=== PATIENT | male | born 1945 | race Caucasian/White ===

== ENCOUNTER 2021-01-14 14:14 | Observation (INO) | payer MEDICARE, OTHER, SELFPAY ==
[2021-01-14] VITALS (20 sets, daily range): BP systolic 132–156; BP diastolic 66–88; PULSE 73–109; RESP 12–20; TEMP 36.1–36.5; O2SAT 97–99; BMI 19.2
--- NOTE | ~2021-01-14 | XR_ITS ---
EXAMINATION: XR chest 2V DATE: 01/14/2021 15:24 INDICATION: Chest pressure TECHNIQUE: PA and lateral views of the chest are obtained. COMPARISON: None available FINDINGS: There is mild elevation of the right hemidiaphragm. Patchy opacities are present in the lef t lung base.. There is no pleural effusion or pneumothorax. The cardiomediastinal silhouette is jimmy l. Calcified atherosclerosis is noted. There is mild thoracic spondylosis. IMPRESSION: 1. Airspace opacity of the left lung base, consistent with atelectasis versus pneumonia. Reviewed, dictated and finalized at location A. IMPRESSION: 1. Airspace opacity of the left lung base, consistent with atelectasis versus p neumonia.
--- NOTE | 2021-01-14 14:26 | ECG_ITS ---
Measurements Intervals [place] Rate: 88 P: 34 SD: 170 QRS: 70 QRSD: 144 T: -18 QT: 391 QTc: 474 Interpretive Statements SINUS RHYTHM ATRIAL PREMATURE COMPLEX RIGHT BUNDLE BRANCH BLOCK ST-T WAVE ABNORMALITY IN INFERIOR LEADS- CONSIDER ISCHEMIA ABNORMAL ECG Electronically Signed On 01-14-2021 15:59:40 CDT by Chris Huang D.O.
[2021-01-14] MEDS: ASPIRIN 81 MG CHEWABLE TABLET 324 MG PO (14:41)
[2021-01-14 14:52] LABS: Basophils Percent Auto 0.4 % (0.2-1.2); Eosinophils Absolute Auto 0.1 K/mm3 (0-0.3); Eosinophils Percent Auto 1.6 % (0-4.4); Hematocrit 47.5 % (42.0-52.0); Hemoglobin 16.5 g/dL (14.0-18.0); Immature Granulocyte Absolute 0.01 K/mm3 (0.00-0.031); Immature Granulocyte Percent A 0.1 % (0-0.5); Lymphocytes Absolute Auto 1.76 K/mm3 (0.9-3.2); Lymphocytes Percent Auto 24.9 % (18.3-44.2); Mean Corpuscular HGB Conc 34.7 g/dl (32-36); Mean Platelet Volume 9.8 fl (7.4-10.4); Monocytes Absolute Auto 0.6 K/mm3 (0.1-0.6); Monocytes Percent Auto 8.6 % (2.6-8.5); Neutrophils Absolute Auto 4.6 K/mm3 (1.3-6.7); Neutrophils Percent Auto 64.4 % (45.5-73.1); Platelet Count Result 180 k/mm3 (150-375); Red Cell Distribution Width 12.9 % (11.5-14.5); White Blood Count 7.1 K/mm3 (4.5-10.0)
[2021-01-14 15:03] LABS: Anion Gap 5 mmol/L (8-16); Blood Urea Nitrogen 21 mg/dL (9-20); Calcium 9.7 mg/dL (8.4-10.2); Carbon Dioxide 30 mmol/L (22-30); Chloride 105 mmol/L (98-107); Estimated Glomerular Filt Rate > 60; Glucose 110 mg/dL (75-110); Potassium 3.7 mmol/L (3.4-5.0); Sodium 140 mmol/L (137-145)
[2021-01-14 15:06] LABS: INR 0.9; Prothrombin Time 12.5 Seconds (11.1-14.7)
--- NOTE | 2021-01-14 15:06 | PC.NURSE ---
called chem, Cecil, added on MG 2501
[2021-01-14 15:07] LABS: Partial Thromboplastin Time 26.1 SECONDS (22.3-36.8)
[2021-01-14 15:14] LABS: Troponin I < 0.012 ng/mL (0.000-0.034)
[2021-01-14 15:15] LABS: Magnesium 2.1 mg/dL (1.6-2.3)
--- NOTE | 2021-01-14 15:25 | ED.ARRPALP ---
HPI - Arrhythmia/Palpitations General Chief Complaint: Arrhythmia/Palpitations Stated Complaint: fast heart rate Time Seen by Provider: 01/14/21 14:34 Source: patient Mode of arrival: ambulatory Limitations: no limitations History of Present Illness HPI narrative: This is a 75 year old male who presents for evaluation of palpitations. He reports about 20 minutes prior to arrival he developed palpitations. He states help his heart beating rapidly and irregularly . He reports history of palpitations and PVCS since his 20s but it never last as long as it did today. He has bilateral axillary pain at time of palpitations but he denies sob, diaphoresis, dizziness, nausea or weakness. He just wants to get checked out. Related Data Home Medications Medication Instructions Recorded Confirmed silodosin 8 mg PO DAILY 01/14/21 Allergies Allergy/AdvReac Type Severity Reaction Status Date / Time No Known Allergies Allergy Verified 01/14/21 14:26 Review of Systems Review of Systems: All systems reviewed & are unremarkable except as noted in HPI and below Constitutional: Constitutional: Denies chills and Denies fever(s) ENT: Denies sore throat Cardiovascular: Cardiovascular: Reports chest pain, Denies rapid heart rate and Denies radiating jaw, neck or arm pain Respiratory: Respiratory: Denies cough and Denies dyspnea Gastrointestinal: Gastrointestinal: Denies abdominal pain and Denies nausea PMFSH Past Medical History Medical History (Updated 01/14/21 @ 18:50 by Naida Valles MD) Frequent PVCs Surgical History Surgical History (Updated 01/14/21 @ 15:28 by Naida Valles MD) No pertinent past surgical history Social History Social History (Updated 01/14/21 @ 15:28 by Naida Valles MD) Smoking status: Never smoker Alcohol intake: never Substance use: never Substance use type: does not use Spiritual care concerns: No Exam Const: General: no acute distress and alert Orientation/consciousness: patient oriented x3 Eyes: EOM: EOMs intact bilaterally Chest: Chest palpation & inspection: normal inspection of the chest Resp: Effort & Inspection: normal respiratory effort and no retractions Auscultation: clear to auscultation bilaterally Cardio: Rate: regular rate Rhythm: regular rhythm Heart sounds: no murmurs GI: GI Palp: Yes Soft to palpation, No Tenderness to palpation present (GI) and No Guarding due to palpation present (GI) Auscultation: normal bowel sounds Skin: General skin exam: normal color Rashes: no rashes Neuro: General: patient oriented x3, moves all extremities and CN's II-XI intact bilaterally Extrem: General: normal to inspection Psych: Mental Status: mental status grossly normal Affect: normal affect Course Reevaluation(s) Reevaluation #1: I discussed with patient that his troponin is elevated and I recommend staying in hospital for observation and repeat troponin and evaluation by cardiology. He states he feels fine he does not want to stay. Date: 01/14/21 Time: 18:47 Reevaluation #2: PAtient has now agreed to stay. Date: 01/14/21 Time: 19:11 Consultations Consultation #1: I spoke with DR. Kelsey of [facility] and he agrees he should be admitted for observation and given dose of lovenox. Wendi Joshua accepts to hospitalist service. Date: 01/14/21 Time: 19:00 Vital Signs Vital signs: Vital Signs Pulse Rate 89 01/14/21 14:19 Respiratory Rate 18 01/14/21 14:19 Blood Pressure 156/87 H 01/14/21 14:19 Pulse Oximetry 98 01/14/21 14:19 Temperature 97.5 F L 01/14/21 20:57 Pulse Rate 109 H 01/14/21 20:57 Respiratory Rate 20 01/14/21 20:57 Blood Pressure 140/66 01/14/21 20:57 Pulse Oximetry 98 01/14/21 20:57 MDM - Arrhythmia/Palpitations Lab Data Attestation: I reviewed the patient's lab results. Result diagrams: 01/14/21 14:35 01/14/21 14:35 Labs: Lab Results 05
[2021-01-14 18:39] LABS: Troponin I 0.045 ng/mL (0.000-0.034)
[2021-01-14] MEDS: ENOXAPARIN 80 MG/0.8 ML SYRINGE 65 MG SUB-Q (20:00)
--- NOTE | 2021-01-14 20:30 | PM.IMHP ---
H&P: HPI History of Present Illness Date/Time: 01/14/21 20:30 Chief Complaint: Racing heart, palpitations, and chest discomfort. Narrative: The patient is a very pleasant 75-year-old male without any significant medical history aside from PVCs and BPH who presented to the emergency department earlier today via private vehicle from home for evaluation of feelings of racing heart with palpitations and chest discomfort which began not long prior to arrival. He felt in his usual state of health today and simply while putting something away in the basement his heart began to race and he had some pressure-like discomfort in his upper chest radiating to the axillae. The symptoms were self-limiting and resolved within approximately 20 minutes but he felt it would be best to come get checked out as this has never happened before. No associated syncope, near syncope, diaphoresis, shortness of breath, nausea, or vomiting. Review of Systems Review of Systems: Narrative: Twelve systems were reviewed with pertinent positives and negatives as per HPI. No fever, chills, or sweats. He denies recent cold and flu symptoms. No exposure to those positive for COVID-19. He is fully vaccinated against the same. No known history of cardiac or pulmonary disease. He has had frequent PVCs since his 20s though he has never had racing heart with the PVCs like he did today. No nausea, vomiting, diarrhea, or dysuria. No history of venous thromboembolism. Except as documented, all other systems were reviewed and are negative. [facility] Past Medical History Medical History (Updated 01/14/21 @ 22:05 by Wendi Joshua PA-C) Benign prostatic hyperplasia Frequent PVCs Psoriasis Surgical History Surgical History (Updated 01/14/21 @ 22:00 by Wendi Joshua PA-C) History of bilateral inguinal hernia repair History of sinus surgery Family History Family History (Updated 01/14/21 @ 22:00 by Wendi Joshua PA-C) Mother Dementia Father Pancreatic mass Social History Social History (Updated 01/14/21 @ 22:02 by Wendi Joshua PA-C) Social History: The patient lives in [place] with his . They have 6 children, 3 of them are his biological children. 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 He spent 9 years thereafter working at the [employer] in [place] and is still quite involved there. Lifelong nonsmoker. No alcohol or illicit substance use. His Marianna and his son Shelton are his surrogate decision makers. Code status: Full code. Meds Home Medications and Allergies Home Medications Medication Instructions Recorded Confirmed Type silodosin 8 mg PO DAILY 01/14/21 01/14/21 History Allergies Allergy/AdvReac Type Severity Reaction Status Date / Time No Known Allergies Allergy Verified 01/14/21 14:26 Vital Signs Vital Signs - 24 hr 01/14/21 14:19 01/14/21 14:20 01/14/21 14:23 Temperature 97.0 F L Pulse Rate 89 89 89 Respiratory Rate 18 18 18 Blood Pressure 156/87 H 156/87 H Pulse Oximetry 98 98 99 01/14/21 14:30 01/14/21 14:31 01/14/21 14:45 Temperature Pulse Rate 85 83 79 Respiratory Rate 14 16 16 Blood Pressure 150/81 H 152/84 H Pulse Oximetry 98 97 98 01/14/21 14:46 01/14/21 15:06 01/14/21 15:15 Temperature Pulse Rate 79 79 74 Respiratory Rate 17 15 Blood Pressure Pulse Oximetry 98 99 01/14/21 15:26 01/14/21 15:30 01/14/21 15:31 Temperature Pulse Rate 74 73 74 Respiratory Rate 18 14 15 Blood Pressure 151/88 H 149/84 H Pulse Oximetry 99 98 98 01/14/21 15:45 01/14/21 15:46 01/14/21 16:00 Temperature Pulse Rate 77 74 80 Respiratory Rate 17 12 18 Blood Pressure 137/80 Pulse Oximetry 98 98 98 01/14/21 18:54 01/14/21 20:57 Temperature 97.5 F L Pulse Rate 80 109 H Respiratory Rate 20 20 Blood Pressure 132/68 140/66 Pulse Oximetry 99 98 Exam Narrative: Exam Narrative: General: Well-developed brijesh
--- NOTE | 2021-01-14 20:57 | ADMGEN ---
This patient, Darshan Wong Jr., was admitted to IMU Room 200-01. Patient/family oriented to hospital policies and general routines including ID bracelet, bed and alarms, visiting hours, pain management, procedures, bathroom and other care routines, personal items, smoking policy, room service/diet, and visiting hours. Information on how to activate the Rapid Response Team has been discussed. Patient/Family are encouraged to report perceived risks to care and to ask questions if they do not understand what they are told or what they should do.
[2021-01-14] MEDS: MELATONIN 5 MG TABLET PO (22:32)
[2021-01-14 23:01] LABS: Troponin I 0.073 ng/mL (0.000-0.034)
[2021-01-15] VITALS (9 sets, daily range): BP systolic 138–154; BP diastolic 78–88; PULSE 68–105; RESP 18–20; TEMP 36.1–36.8; O2SAT 97–98
[2021-01-15 04:58] LABS: Hemoglobin 15.5 g/dL (14.0-18.0); Mean Corpuscular HGB Conc 34.4 g/dl (32-36); Mean Corpuscular Hemoglobin 33.2 pg (26-34); Mean Corpuscular Volume 96.4 fl (80-100); Mean Platelet Volume 9.8 fl (7.4-10.4); Platelet Count Result 172 k/mm3 (150-375); Red Blood Count 4.67 M/mm3 (4.6-6.20); Red Cell Distribution Width 12.8 % (11.5-14.5); White Blood Count 8.3 K/mm3 (4.5-10.0)
[2021-01-15 05:13] LABS: Alanine Aminotransferase 21 U/L (4-50); Albumin Level 3.7 g/dL (3.5-5.1); Alkaline Phosphatase 55 U/L (38-126); Anion Gap 1 mmol/L (8-16); Aspartate Amino Transferase 23 U/L (17-59); Bilirubin,Total 0.4 mg/dL (0.2-1.3); Blood Urea Nitrogen 18 mg/dL (9-20); Calcium 9.1 mg/dL (8.4-10.2); Carbon Dioxide 32 mmol/L (22-30); Chloride 104 mmol/L (98-107); Cholesterol 147 mg/dL (0-200); Estimated CRCL calculation 61 ml/min; Estimated Glomerular Filt Rate > 60; Glucose 91 mg/dL (75-110); HDL Direct 61 mg/dL; Magnesium 1.9 mg/dL (1.6-2.3); Potassium 3.3 mmol/L (3.4-5.0); Sodium 137 mmol/L (137-145); Triglycerides 45 mg/dL (<150)
[2021-01-15 05:24] LABS: LDL Cholesterol Direct 64 mg/dL
--- NOTE | 2021-01-15 06:00 | ECHO_ITS ---
Patient Info Name: Darshan Wong Age: 75 years : 1945 Gender: Male Ht: 71 in Wt: 137 lbs BSA: 1.75 m2 HR: 82 bpm BP: 140 / 78 mmHg Heart Rhythm: Sinus Rhythm Technical Quality: Good Exam Date: 01/15/2021 9:03 AM Exam Location: [facility] Pulmonary Patient Status: Inpatient Admit Date: 01/14/2021 Staff Ordering Physician: Naida Valles MD Tunnel Kiln Repairer: Duane Méndez RDCS, RT Attending Provider: Jun Santiago MD Referring Physician: Hai WILL; Exam Type: CA echo doppler color flow Study Info Indications R00.2 - Palpitations Complete two-dimensional, color flow and Doppler transthoracic echocardiogram is performed. Strain analysis performed. Summary 1. Complete two-dimensional, color flow and Doppler transthoracic echocardiogram is performed. 2. Left ventricular chamber size, wall thickness, systolic function are normal with no regional wall motion abnormalities with an estimated ejection fraction of 60-65%. Grade 1 diastolic dysfunction is present. Global longitudinal strain in normal at -20%. 3. No pulmonary hypertension, estimated pulmonary arterial systolic pressure is 28 mmHg. 4. Mild prolapse of the posterior mitral valve leaflet with trivial mitral regurgitation. 5. Normal sinus rhythm. Left Ventricle Left ventricular chamber dimension is normal. Left ventricular systolic function is normal, estimated at 60-65%. There is no increased left ventricular wall thickness. Left ventricular septal wall motion is normal. The left ventricular diastolic function is grade I diastolic dysfunction. Global longitudinal strain is normal at 20 %. Left ventricular chamber size, wall thickness, systolic function are normal with no regional wall motion abnormalities with an estimated ejection fraction of 60-65%. Grade 1 diastolic dysfunction is present. Global longitudinal strain in normal at -20%. Right Ventricle Right ventricular chamber dimension is normal. Right ventricular systolic function is normal. Left Atria Left atrial chamber dimension is normal. Right Atria Right atrial chamber dimension is normal. Aortic Valve The aortic valve is trileaflet. There is no aortic valve sclerosis. There is no aortic valve stenosis. There is no aortic valve regurgitation. Pulmonic Valve The pulmonic valve is normal. There is no pulmonic valve stenosis. There is trace pulmonic regurgitation. Mitral Valve The mitral valve has posterior prolapse. There is no mitral valve stenosis. There is trace mitral valve regurgitation. Tricuspid Valve The tricuspid valve leaflets are normal. There is no significant tricuspid valve stenosis. There is trace tricuspid valve regurgitation. No pulmonary hypertension, estimated pulmonary arterial systolic pressure is 28 mmHg. Pericardium/Pleural The pericardium appears normal. There is no pericardial effusion. Inferior Vena Cava Normal inferior vena cava with >50% collapse upon inspiration consistent with Empty right atrial pressure, 5 mmHg. Aorta The aortic root size at the sinus of Valsalva is normal. The prox ascending aorta size is normal. Left Ventricular Outflow Tract Name Value Normal LVOT 2D LVOT Diameter 2.
[2021-01-15] MEDS: ASPIRIN 81 MG CHEWABLE TABLET PO (08:35)
--- NOTE | 2021-01-15 09:21 | PM.IMPN ---
Progress Note: A&P Assessment and Plan (1) Palpitations: Code(s): R00.2 - Palpitations Status: Acute (2) Chest pressure: Code(s): R07.89 - Other chest pain Status: Acute (3) Elevated troponin: Code(s): R77.8 - Other specified abnormalities of plasma proteins Status: Acute (4) Benign prostatic hyperplasia: Code(s): N40.0 - Benign prostatic hyperplasia without lower urinary tract symptoms Status: Acute (5) Elevated blood pressure reading: Code(s): R03.0 - Elevated blood-pressure reading, without diagnosis of hypertension Status: Acute Additional Plan 01/14/21 The patient presents today for evaluation of chest pressure and palpitations as per HPI. Initial troponin in the emergency department was less than 0.12 however his 3 hour troponin was a bit elevated. EKG showed occasional ectopy with some ST wave abnormalities in the inferior leads concerning for possible ischemia. In light of this he is being admitted to the IMU and will be monitored on telemetry. He was given aspirin 325 milligrams in the emergency department and has been started on Lovenox 1 milligram/kilogram b.i.d. He will be NPO after midnight for possible cardiac catheterization in the morning, pending cardiology consultation. Dr. Kelsey has been consulted and his input is appreciated. The patient's blood pressures have been running in the 140s to 150 systolic but he is noticeably anxious thus will continue to monitor closely for now. Should his troponin continue to elevate it may be prudent to begin metoprolol which would help with his premature complexes as well. His home medications will be reviewed and resumed as appropriate. Patient reports that he is feeling fine. No chest pressure or pain or tightness since admission denies any palpitations since admission. Patient has history of palpitations and no PVCs but they have not been persistent. This episode lasted approximately 15 minutes. We discussed that he could have an elevated troponin due from demand ischemia associated with these palpitations however we will defer to Cardiology to further determine etiology and appropriate workup. 01/15/21 troponin w elevation .045-> .073, cardiology following, likely associated with episode of tachycardia. Continue current care with continuous telemetry monitoring. Anticipate discharge home when cleared by lunchroom aide. Subjective Date/time seen: 11:02 01/15/21 Patient doing okay denies any chest pain shortness of breath dizziness or any other complaint other than intermittent palpitations with chest tightness while occurring. Review of Systems Review of Systems: All systems reviewed & are unremarkable except as noted in HPI and below Exam Narrative: Exam Narrative: GEN: NAD, AAOx2, cooperative HEENT: NCAT, MMM, EOMI Neck: no JVD Heart: S1S2 RRR Lungs: CTA B/l Abd: soft, NT, ND, bowel sounds normoactive Ext: moves all, no cyanosis, no clubbing, no edema Psych: mood and affect congruent Objective Data Vital Signs Vital Signs: Vital Signs - 24 hr 01/14/21 14:19 01/14/21 14:20 01/14/21 14:23 Temperature 97.0 F L Pulse Rate 89 89 89 Respiratory Rate 18 18 18 Blood Pressure 156/87 H 156/87 H Pulse Oximetry 98 98 99 01/14/21 14:30 01/14/21 14:31 01/14/21 14:45 Temperature Pulse Rate 85 83 79 Respiratory Rate 14 16 16 Blood Pressure 150/81 H 152/84 H Pulse Oximetry 98 97 98 01/14/21 14:46 01/14/21 15:06 01/14/21 15:15 Temperature Pulse Rate 79 79 74 Respiratory Rate 17 15 Blood Pressure Pulse Oximetry 98 99 01/14/21 15:26 01/14/21 15:30 01/14/21 15:31 Temperature Pulse Rate 74 73 74 Respiratory Rate 18 14 15 Blood Pressure 151/88 H 149/84 H Pulse Oximetry 99 98 98 01/14/21 15:45 01/14/21 15:46 01/14/21 16:00 Temperature Pulse Rate 77 74 80 Respiratory Rate 17 12 18 Blood Pressure 137/80 Pulse Oximetry 98 98 98 01/14/21 18:54 01/14/21 20:57
[2021-01-15] MEDS: POTASSIUM CHLORIDE 10 MEQ TABLET 30 MEQ PO (10:45)
--- NOTE | 2021-01-15 11:44 | PM.CNCAR ---
Assessment and Plan Assessment and plan (1) Tachycardia: Code(s): R00.0 - Tachycardia, unspecified Status: Acute Assessment and Plan: Stuart Wong appears to be having very infrequent sustained tachyarrhythmia. Since he had an episode a few decades ago when young this may be a PSVT but of course we need to look for paroxysmal atrial fibrillation. He does have PVCs and he could have and right ventricular outflow tract tachycardia or other unusual tachycardias. On the good side, he does not have any symptoms of dizziness or syncope but he did develop some chest tightness with this episode. We should evaluate for underlying CAD but I do not think ischemia was the cause of the tachycardia. (2) Elevated troponin: Code(s): R77.8 - Other specified abnormalities of plasma proteins Status: Acute Assessment and Plan: Elevated troponins noted, probably as a result of the tachycardia; I do not think this was an ACS event. Will need to evaluate for any underlying CAD. He does not have any angina and has good exertional tolerance. He does appear to have some lateral ST depression and I repeated an EKG, which showed some improvement but still residual changes, so this may be chronic and insignificant. Echo showed good LV function w/ no wall motion abnormalities. Discussed options with patient: Outpatient monitoring, empiric beta-anibal therapy, implantable loop recorder etc. (3) Chest pressure: Code(s): R07.89 - Other chest pain Status: Acute Assessment and Plan: Chest pressure as a result of the tachyarrhythmia, no evidence of ACS. (4) Elevated blood pressure reading: Code(s): R03.0 - Elevated blood-pressure reading, without diagnosis of hypertension Status: Acute Assessment and Plan: Blood pressure apparently runs high in the hospital but normal at home (5) Mitral valve prolapse: Code(s): I34.1 - Nonrheumatic mitral (valve) prolapse Status: Acute Assessment and Plan: Mild MVP with trivial MR, not likely to cause problems but occasionally associated with atrial fibrillation and occasionally with chordal rupture and abrupt significant MR. Periodic monitoring with echo particularly if there is a change in symptoms or development of murmur. Additional Plan Okay for discharge Patient declined medical therapy (diltiazem or metoprolol for example) for his arrhythmia, reasonable in view of it's infrequency and self-termination, but will discuss later. My office will set up outpatient long-term monitoring, a stress test, and office visit. Reviewed the Valsalva maneuver. Patient may benefit from an implantable loop recorder if nothing shows up on the 30 day monitor Would add aspirin 81 mg daily. History of Present Illness History of Present Illness Consult date/time: 01/15/21 11:44 Requesting physician: Wendi Joshua PA-C Consult reason: Other Reason For Visit: elevated troponin, palpitations Narrative: (retired) Darshan Wong is a 75-year-old white male whom we were asked to see at the request of the hospitalist for our advice and opinion regarding his palpitations, chest discomfort and elevated troponins, in consultation. Colonel Wong ( Just call me Stuart ) has no history of heart problems. However he has had a couple episodes of tachycardia in his life time, once around 1979 and once about 5 years ago lasting 10 or so minutes. He has not had much evaluation of these. Yesterday, while doing minor activity he suddenly found his heart was racing, and it felt very steady but fast. He had no nausea, sweating or shor
[2021-01-15] MEDS: ENOXAPARIN 80 MG/0.8 ML SYRINGE 65 MG SUB-Q (13:04)
--- NOTE | 2021-01-15 13:26 | ECG_ITS ---
Measurements Intervals [place] Rate: 84 P: 32 [place]: 165 QRS: 66 QRSD: 142 T: 37 QT: 384 QTc: 457 Interpretive Statements SINUS RHYTHM ATRIAL PREMATURE COMPLEXES RIGHT BUNDLE BRANCH BLOCK ABNORMAL ECG Electronically Signed On 01-15-2021 13:40:37 CDT by Chris Huang D.O.
--- NOTE | 2021-01-15 16:58 | PM.DS ---
DS: Admitting Diagnosis Admitting Diagnosis Admitting Diagnosis: (1) Palpitations: (2) Chest pressure: (3) Elevated troponin: (4) Benign prostatic hyperplasia: (5) Elevated blood pressure reading: DS: Discharge Diagnosis Discharge Diagnosis (1) Palpitations: Code(s): R00.2 - Palpitations Status: Acute (2) Chest pressure: Code(s): R07.89 - Other chest pain Status: Acute (3) Elevated troponin: Code(s): R77.8 - Other specified abnormalities of plasma proteins Status: Acute (4) Benign prostatic hyperplasia: Code(s): N40.0 - Benign prostatic hyperplasia without lower urinary tract symptoms Status: Acute (5) Elevated blood pressure reading: Code(s): R03.0 - Elevated blood-pressure reading, without diagnosis of hypertension Status: Acute DS: Summary Hospital Course Reason for hospitalization: chest tightness, palpations Hospital Course: Patient admitted with chest tightness associated with palpitations for approximately 15 minutes. that resolved prior to admission. Patient did have an elevated troponin likely secondary to this event. He was seen by cardiology and cleared for discharge, ACS ruled out, recommendation is for assets 81 mg p.o. q.day and ongoing outpatient workup. Status at Discharge Functional status at discharge: independent ambulation Overall status at discharge: patient is back to baseline Time Spent with Patient Time attestation: Total time spent providing and/or coordinating discharge services: Time spent: Less than 30 minutes Exam Narrative: Exam Narrative: GEN: NAD, AAOx2, cooperative HEENT: NCAT, MMM, EOMI Neck: no JVD Heart: S1S2 RRR Lungs: CTA B/l Abd: soft, NT, ND, bowel sounds normoactive Ext: moves all, no cyanosis, no clubbing, no edema Psych: mood and affect congruent DS: Data Data Completed and Pending Labs on day of discharge: Labs from last 24 hours 01/15/21 01/15/21 01/15/21 04:25 04:25 04:25 WBC 8.3 RBC 4.67 Hgb 15.5 Hct 45.0 MCV 96.4 MCH 33.2 MCHC 34.4 RDW 12.8 Plt Count 172 MPV 9.8 Sodium 137 Potassium 3.3 L Chloride 104 Carbon Dioxide 32 H Anion Gap 1 L BUN 18 Creatinine 0.80 Estim Creat Clear Calc 61 Estimated GFR > 60 Glucose 91 Calcium 9.1 Magnesium 1.9 Total Bilirubin 0.4 AST 23 ALT 21 Alkaline Phosphatase 55 Troponin I Total Protein 6.0 L Albumin 3.7 Triglycerides 45 Cholesterol 147 LDL Cholesterol Direct 64 HDL Direct 61 TSH (Reflex) 1.450 01/14/21 01/14/21 22:30 17:27 WBC RBC Hgb Hct MCV MCH MCHC RDW Plt Count MPV Sodium Potassium Chloride Carbon Dioxide Anion Gap BUN Creatinine Estim Creat Clear Calc Estimated GFR Glucose Calcium Magnesium Total Bilirubin AST ALT Alkaline Phosphatase Troponin I 0.073 H* D 0.045 H* D Total Protein Albumin Triglycerides Cholesterol LDL Cholesterol Direct HDL Direct TSH (Reflex) Discharge Plan Discharge Attending physician on discharge: Candace Coker Consulting providers: Marko Kelsey Discharging Clinician: Candace Coker Anticipated Discharge Date/Time: 01/15/21 16:55 Patient Disposition: Home, Self-Care Activity: as tolerated Diet: heart healthy Discharge Instructions: [facility] should be calling you in the next couple of days to schedule a long-term patch monitor, a stress test, and office follow-up. Please call Dr Malloy if you have any questions or problems. [facility] Cardiology: [phone]. Address: [address] [place] [address] [address], [address], [place] [address]. Our office is on the ground floor next to the gift shop of the doctor's office building. Enter through the main entrance for COVID screening. Dr. Malloy recommends taking aspirin 81 mg daily
== END 2021-01-15 17:22 | disposition home or self-care (01) ==
LOC: ANHED 19:18 → ANHIMU 21:45
PROVIDERS: Emergency Medicine; Physician Assistant; Admitting Provider Internal Medicine; Emergency Provider General Practice; PCP Family Medicine; Visit Provider Hospitalist
DX: R00.2 Palpitations (principal); R77.8 Other specified abnormalities of plasma proteins; R07.89 Other chest pain; R00.0 Tachycardia, unspecified; R03.0 Elevated blood-pressure reading, without diagnosis of hypertension; N40.0 Benign prostatic hyperplasia without lower urinary tract symptoms
CPT/HCPCS: 36415; 71046; 80048; 80053; 80061; 83735; 84443; 84484; 85025; 85027; 85610; 85730; 93005; 93306; 96372; 99285; A9270; G0378; J1650

== ENCOUNTER → 2021-03-15 01:19 | Outpatient (CLI) | payer MEDICARE, OTHER, SELFPAY ==
[2021-03-15 16:44] LABS: SARS-CoV-2 RNA PCR Negative
== END ==
PROVIDERS: PCP Family Medicine; Visit Provider Internal Medicine Cardiovascular Disease
DX: Z01.812 Encounter for preprocedural laboratory examination (principal); Z20.822 Contact with and (suspected) exposure to COVID-19
CPT/HCPCS: C9803; U0003; U0005

== ENCOUNTER → 2021-03-18 01:18 | Day surgery (SDC) | payer MEDICARE, OTHER, SELFPAY ==
[2021-03-18 11:00] VITALS: BP 145/88; PULSE 78; RESP 14; TEMP 36.3; O2SAT 100; BMI 21.2
--- NOTE | 2021-03-18 11:39 | WPDHPUPDATE1 ---
History and Physical Update Update Date/Time: 03/18/21 11:39 patient with a history of infrequent tachyarrhythmias was hospitalized recently for another episode which had resolved prior to his arrival in the emergency room. Outpatient monitoring has shown PVCs and a 4 beat run of ventricular tachycardia. He is here for implantation of a long-term implantable loop recorder for further evaluation. History and Physical has been reviewed, including an updated exam of the patient. There are NO changes in the patient's condition. Risks, benefits, and alternatives have been discussed and questions answered. Patient agrees to proceed with procedure.
--- NOTE | 2021-03-18 11:40 | P.SEDATION_ITS ---
Moderate Sedation Note-Pt Data Patient Data Diagnosis: Paroxysmal tachyarrhythmia Present Complaint: paroxysmal tachyarrhythmia Procedure to be performed/Plan: Possible conscious sedation Local and anesthesia Implantation of a implantable loop recorder Allergies Allergy/AdvReac Type Severity Reaction Status Date / Time codeine AdvReac Gastrointestinal Verified 03/18/21 11:30 Upset prednisone AdvReac Jittery Verified 03/18/21 11:30 theophylline AdvReac Chest Pain Verified 03/18/21 11:29 Home Medications Medication Instructions Recorded Confirmed Type silodosin 8 mg PO DAILY 01/14/21 01/14/21 History aspirin [Children's Aspirin] 81 mg PO DAILY@0800 #30 tablet 01/15/21 Rx Sedation/Anesthesia: No previous sedation/anesthesia problems (including family history). [facility] Past Medical History Medical History Benign prostatic hyperplasia Frequent PVCs Psoriasis Surgical History Surgical History History of bilateral inguinal hernia repair History of sinus surgery Family History Family History Mother Dementia Father Pancreatic mass Social History Social History Social History: The patient lives in [place] with his . They have 6 children, 3 of them are his biological children. 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 He spent 9 years thereafter working at the [employer] in [place] and is still quite involved there. Lifelong nonsmoker. No alcohol or illicit substance use. His Marianna and his son Shelton are his surrogate decision makers. Code status: Full code. Mod Sed Physical Exam Physical Exam Pre Procedural Exam: Normal: Appearance, Eyes, Ears, Nose, Neck, Throat, Airway, Lungs, Heart Size, Heart Rate, Heart Rhythm, Neuro Exam, Abdomen, Extremities and Skin Hours since solid foods: 12 Hours since liquid intake: 12 Mallampati Classification: class III Internal Medicine - PN: Obj Da Vital Signs Vital Signs: Vital Signs - 24 hr 03/18/21 11:00 Temperature 97.4 F L Pulse Rate 78 Respiratory Rate 14 Blood Pressure 145/88 H Pulse Oximetry 100 ASA Classification/Sedation ASA Classification/Sedation ASA Class: III Emergent: No Risks: Risks, benefits and alternatives explained and patient/family accepted plan for sedation. Patient re-evaluated immediately prior to sedation.
--- NOTE | 2021-03-18 12:01 | PM.OP ---
Procedure Note - Brief Procedure Note - Brief Date of procedure: 03/18/21 Pre-op diagnosis: tachyarrhythmia Post-op diagnosis: same Procedure performed: insertion of a Biotronik implantable loop recorder Description of procedure: uneventful implant Anesthesia: local Surgeon: Hui Malloy MD Estimated blood loss (mL): 1 Complications: No immediate complications Condition: stable Disposition: same day
--- NOTE | 2021-03-18 12:03 | W.PM.PROC2 ---
Procedure Note - Detailed Date of Procedure 03/18/21 Pre-op Diagnosis tachyarrhythmia of uncertain etiology Post-op Diagnosis same Procedure Performed implantation of a Biotronik implantable loop recorder Surgeon Hui Malloy MD Anesthesia local Indications tachyarrhythmia of uncertain etiology Description of Procedure After informed consent, the patient's left parasternal area was prepped and draped in usual fashion. He received 1% lidocaine over the 3rd-4th intercostal space and a Biotronik loop recorder (Model 859321, Serial [id number]) was inserted in the standard fashion along the left sternal border. Hemostasis is was obtained with local pressure. The incision was closed with Dermabond, and dressed with a clean large Band-Aid. He tolerated the procedure well with no complications. The device was interrogated and R-wave sensing was found to be good, 0. 55 to 0.7 mV Follow-up: The patient is given information about remote monitoring, will follow-up in our office in 1 week for an incision check Implants Biotronik loop recorder, Model [id number], Serial [id number] Estimated Blood Loss 1 Drains No Packing No Pathology none sent Complications No immediate complications Condition stable Disposition same day
--- NOTE | 2021-03-18 12:57 | SUR.OPER ---
Pt tolerated loop recorder placement well. No complaints of pain or discomfort. Discharge instructions reviewed with patient with stated understanding - including wound care, follow up appointment, advancing activity - limiting use of left arm for the next week. Pt escorted to [facility] to drive home.
== END | disposition home or self-care (01) ==
PROVIDERS: Internal Medicine Cardiovascular Disease; PCP Family Medicine; Visit Provider Internal Medicine Cardiovascular Disease
PROC: (CPT 33285; principal; 2021-03-18 11:30)
DX: R00.0 Tachycardia, unspecified (principal); I34.1 Nonrheumatic mitral (valve) prolapse; Z79.82 Long term (current) use of aspirin; L40.9 Psoriasis, unspecified
CPT/HCPCS: 33285; C1764

== ENCOUNTER 2021-12-16 13:14 | Emergency (ER) | payer MEDICARE, OTHER, SELFPAY ==
--- NOTE | ~2021-12-16 | XR_ITS ---
EXAMINATION: XR chest 2V EXAM DATE: 12/16/2021 13:32 INDICATION: Palpitations earlier today. TECHNIQUE: Frontal and lateral projections of the chest obtained and reviewed. Comparison is made to prior examination from 01/14/2021. FINDINGS: Cardiac monitoring device. The lungs are clear. There are no pleural effusions. The card iomediastinal silhouette is within normal limits. There is no pneumothorax suspected. The bones and soft tissues are unremarkable. IMPRESSION: No acute cardiopulmonary findings. Reviewed, dictated and finalized at location A.
--- NOTE | 2021-12-16 13:23 | ECG_ITS ---
Measurements Intervals [place] Rate: 104 P: 43 FL: 168 QRS: 79 QRSD: 149 T: -16 QT: 355 QTc: 468 Interpretive Statements SINUS TACHYCARDIA RIGHT BUNDLE BRANCH BLOCK [120+ ms QRS DURATION, UPRIGHT V1, 40+ ms S IN I/aVL/V4/V5/V6] COMPARED TO ECG 01/15/2021 13:36:58 SINUS TACHYCARDIA NOW PRESENT Electronically Signed On 12-16-2021 16:50:28 CDT by Hui Malloy M.D.
[2021-12-16 13:27] VITALS: BP 149/101; PULSE 103; RESP 18; TEMP 36.8; O2SAT 96
[2021-12-16 13:55] LABS: Basophils Percent Auto 0.5 % (0.2-1.2); Eosinophils Absolute Auto 0.1 K/mm3 (0-0.3); Eosinophils Percent Auto 1.8 % (0-4.4); Hematocrit 50.1 % (42.0-52.0); Hemoglobin 16.8 g/dL (14.0-18.0); Immature Granulocyte Absolute 0.01 K/mm3 (0.00-0.031); Immature Granulocyte Percent A 0.2 % (0-0.5); Lymphocytes Absolute Auto 1.23 K/mm3 (0.9-3.2); Lymphocytes Percent Auto 19.9 % (18.3-44.2); Mean Corpuscular HGB Conc 33.5 g/dl (32-36); Mean Corpuscular Hemoglobin 33.7 pg (26-34); Mean Corpuscular Volume 100.4 fl (80-100); Mean Platelet Volume 9.7 fl (7.4-10.4); Monocytes Absolute Auto 0.4 K/mm3 (0.1-0.6); Monocytes Percent Auto 6.3 % (2.6-8.5); Neutrophils Absolute Auto 4.4 K/mm3 (1.3-6.7); Neutrophils Percent Auto 71.3 % (45.5-73.1); Platelet Count Result 162 k/mm3 (150-375); Red Blood Count 4.99 M/mm3 (4.6-6.20); Red Cell Distribution Width 12.8 % (11.5-14.5); White Blood Count 6.2 K/mm3 (4.5-10.0)
[2021-12-16 14:06] LABS: Alanine Aminotransferase 26 U/L (4-50); Albumin Level 4.3 g/dL (3.5-5.1); Alkaline Phosphatase 62 U/L (38-126); Anion Gap 8 mmol/L (8-16); Aspartate Amino Transferase 27 U/L (17-59); Bilirubin,Total 0.6 mg/dL (0.2-1.3); Blood Urea Nitrogen 23 mg/dL (9-20); Calcium 9.2 mg/dL (8.4-10.2); Carbon Dioxide 29 mmol/L (22-30); Chloride 102 mmol/L (98-107); Estimated CRCL calculation 52 ml/min; Estimated Glomerular Filt Rate > 60; Glucose 128 mg/dL (65-110); Lipase 115 U/L (23-300); Potassium 3.4 mmol/L (3.4-5.0); Sodium 139 mmol/L (137-145)
[2021-12-16 14:07] LABS: Prothrombin Time 12.4 Seconds (11.1-14.7)
[2021-12-16 14:08] LABS: Partial Thromboplastin Time 26.1 SECONDS (22.3-36.8)
[2021-12-16 14:19] LABS: Troponin I < 0.012 ng/mL (0.000-0.034)
--- NOTE | 2021-12-16 16:06 | PC.NURSE ---
Care assumed of pt at this time, Pt denies any current s/s
--- NOTE | 2021-12-16 16:26 | ED.ARRPALP ---
HPI - Arrhythmia/Palpitations General Chief Complaint: Arrhythmia/Palpitations Stated Complaint: arrhythmia Time Seen by Provider: 12/16/21 15:52 Source: patient Mode of arrival: ambulatory Limitations: no limitations History of Present Illness HPI narrative: 76-year-old male presents emergency room secondary to a fast heart rate. States he was at home earlier today when he had episode his heart was racing. He had no syncope or loss of consciousness. Denied any shortness of breath. Lasted for approximately 10 to 15 minutes and spontaneously went back to his normal rhythm. Similar episodes in the past and had a [employer] event monitor inserted in January 2021. This is the first time since then that he has had any type of episode so he came to the emergency room. The monitor set up so that it transmit all of the readings from the day overnight to a device this is beside his bed therefore we do not have access to these readings at this time. Related Data Home Medications Medication Instructions Recorded Confirmed silodosin 8 mg PO DAILY 01/14/21 01/14/21 Allergies Allergy/AdvReac Type Severity Reaction Status Date / Time codeine AdvReac Gastrointestinal Verified 03/18/21 11:30 Upset prednisone AdvReac Jittery Verified 03/18/21 11:30 theophylline AdvReac Chest Pain Verified 03/18/21 11:29 Review of Systems Review of Systems: CONSTITUTIONAL: Denies fever, chills, or sweats. EYES: Denies visual changes, redness, or discharge. ENT: Denies rhinorrhea, congestion, sore throat, or otalgia. CARDIOVASCULAR: Episode of tachycardia today. Denies any shortness of breath or chest pain. RESPIRATORY: Denies cough or dyspnea. GASTROINTESTINAL: Denies abdominal pain, nausea, vomiting, or diarrhea. GENITOURINARY: Denies dysuria or hematuria. SKIN: Denies rash or itching. MUSCULOSKELETAL: Denies back pain, joint pain, or myalgia. NEUROLOGIC: Denies headache, numbness, or weakness. PSYCHIATRIC: Denies anxiety or depression. [facility] Past Medical History Medical History Benign prostatic hyperplasia Frequent PVCs Psoriasis Surgical History Surgical History History of bilateral inguinal hernia repair History of sinus surgery Family History Family History Mother Dementia Father Pancreatic mass Social History Social History Social History: The patient lives in [place] with his . They have 6 children, 3 of them are his biological children. 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 Lifelong nonsmoker. No alcohol or illicit substance use. His Marianna and his son Shelton are his surrogate decision makers. Code status: Full code. Exam Narrative: APPEARANCE: Well appearing, no pain or distress, well-nourished. Head normocephalic and atraumatic. EYES: PERRLA/EOMI, conjunctivae very clear. NOSE: Normal with no drainage EARS:TMS clear Ricarda Shaw, with good light reflex. THROAT: Pharynx clear, no exudate. NECK: Supple. No adenopathy, no masses. RESPIRATORY: Airway patent, respirations nonlabored. Clear to auscultation bilaterally, no rales, rhonchi, wheezing. CARDIOVASCULAR: Regular rate and rhythm without murmurs, rubs, or gallops. ABDOMINAL: Soft, nontender, nondistended, no hepatosplenomegaly Musculoskeletal: Moves all extremities. Strength/ROM intact, No edema, No calf tenderness. NEURO: Alert. Cranial nerves II through XII intact. Normal gait. Good coordination. Nonfocal examination. SKIN:: Warm, dry. Normal Color PSYCHIATRIC: Normal affect/mood, normal interaction Course Vital Signs Vital signs: Vital Signs Temperature 98.3 F 12/16/21 13:27 Pulse Rate 103 H 04
[2021-12-16 16:52] LABS: Troponin I 0.017 ng/mL (0.000-0.034)
[2021-12-16 16:56] VITALS: BP 131/81; PULSE 88; RESP 18; O2SAT 98
== END 2021-12-16 16:56 | disposition home or self-care (01) ==
LOC: ANHED 16:47
PROVIDERS: Emergency Provider Emergency Medicine; PCP Family Medicine
DX: R00.0 Tachycardia, unspecified (principal); Z79.899 Other long term (current) drug therapy; Z88.5 Allergy status to narcotic agent; Z88.8 Allergy status to other drugs, medicaments and biological substances
CPT/HCPCS: 36415; 71046; 80053; 83690; 84484; 85025; 85610; 85730; 93005; 99284

== ENCOUNTER 2023-07-06 11:04 | Outpatient (CLI) | payer MEDICARE, OTHER, SELFPAY ==
--- NOTE | ~2023-07-06 | CT_ITS ---
EXAMINATION: CT soft tissue neck w con DATE: 07/06/2023 11:40 INDICATION: Left ear pain. Left jaw pain. TECHNIQUE: Computed tomography (CT) of the neck was performed with 75 mL Omnipaque-350 intravenous co ntrast. Automated exposure control and iterative reconstruction technique were employed. The dose-presley gth product was 471.50 mGy-cm. COMPARISON: None FINDINGS: There are no pathologically enlarged lymph nodes. There are nodules in the thyroid measurin g up to 9 mm, likely not clinically significant. There is 0% stenosis of the proximal internal caroti d arteries relative to normal distal artery lumen diameters. There is mild mucosal thickening in the paranasal sinuses. There is a mucous retention cyst in left maxillary sinus. The mastoid air cells ar e normal. There is moderate cervical spondylosis. IMPRESSION: 1. No specific etiology for the patient's symptoms. Reviewed, dictated and finalized at location E.
[2023-07-06 11:35] LABS: Estimated Glomerular Filt Rate > 60
== END 2023-07-06 11:05 | disposition home or self-care (01) ==
PROVIDERS: PCP Family Medicine; Visit Provider Otolaryngology
DX: H92.02 Otalgia, left ear (principal); R68.84 Jaw pain; G89.29 Other chronic pain
CPT/HCPCS: 70491; Q9967